=== PATIENT | female | born 1980 ===

== ENCOUNTER → 2018-08-20 21:34 | Outpatient (REF) | payer OTHER, SELFPAY ==
[2018-08-23 16:23] LABS: Syphilis AB Cascading Reflex NEGATIVE (Negative)
[2018-08-24 10:31] LABS: Mitogen-NIL 8.11 IU/mL; NIL 0.01 IU/mL; QuantiFERON TB NEGATIVE (Negative); TB1-NIL 0.01 IU/mL; TB2-NIL 0.01 IU/mL
== END ==
LOC: LAB 21:34
PROVIDERS: Visit Provider Physician Assistant
DX: Z11.1 Encounter for screening for respiratory tuberculosis (principal); Z11.3 Encounter for screening for infections with a predominantly sexual mode of transmission
CPT/HCPCS: 36415; 86480; 86780; 87591